=== PATIENT | female | born 1995 | race Caucasian/White ===

== ENCOUNTER 2021-11-12 18:08 | Emergency (ER) | payer SELFPAY ==
[~2021-11-12] VITALS: Ht 160 cm; Wt 54.0 kg
[2021-11-12 18:26] VITALS: BP 125/84
[2021-11-12] MEDS ORDERED: ACETAMINOPHEN 325MG TABLET PO ONE (19:15)
[2021-11-12] MEDS ORDERED: ONDANSETRON 4MG ODT PO ONE (19:30)
== END 2021-11-12 19:32 | disposition home or self-care (01) ==
LOC: ER 18:08
DX: B34.8 Other viral infections of unspecified site (principal); R05.9 Cough, unspecified; R53.83 Other fatigue; Z20.822 Contact with and (suspected) exposure to COVID-19; Z98.890 Other specified postprocedural states
CPT/HCPCS: 99283; C9803; U0003; U0005

== ENCOUNTER 2021-12-13 14:33 | Emergency (ER) | payer MEDICAID ==
[~2021-12-13] VITALS: Ht 165.1 cm; Wt 66.0 kg
[2021-12-13 15:17] VITALS: BP 116/70
== END 2021-12-13 17:32 | disposition home or self-care (01) ==
LOC: ER 14:33
DX: R06.09 Other forms of dyspnea (principal); F41.9 Anxiety disorder, unspecified; Z98.890 Other specified postprocedural states
CPT/HCPCS: 99281

== ENCOUNTER 2025-08-18 20:23 | Emergency (ER) | payer MEDICAID ==
[~2025-08-18] VITALS: Ht 162.6 cm; Wt 60.1 kg
[2025-08-18 20:38] VITALS: O2SAT 99
[2025-08-18] MEDS: KETOROLAC 15MG/ML VIAL IM NR (23:02)
[2025-08-18] MEDS: KETOROLAC 15MG/ML VIAL IM ONE (23:06)
[2025-08-18] MEDS: LIDOCAINE 5% PATCH TOP SCH (23:06)
[2025-08-19] MEDS ORDERED: LIDO-53 TP (00:03)
[2025-08-19] MEDS ORDERED: NAPR-1176 MT (00:03)
[2025-08-19 00:20] VITALS: BP 144/92; PULSE 71; RESP 15; TEMP 36.5; O2SAT 100
== END 2025-08-19 00:25 | disposition home or self-care (01) ==
LOC: ER 20:23
DX: M79.671 Pain in right foot (principal); Z98.890 Other specified postprocedural states
CPT/HCPCS: 99283; 81025; 73630; 96372; J1885